=== PATIENT | female | born 1955 | race African-American/Black ===

== ENCOUNTER 2018-04-22 16:22 | Emergency (ER) | payer SELFPAY ==
[~2018-04-22] VITALS: Ht 167.6 cm; Wt 73.0 kg
[2018-04-22] MEDS ORDERED: ONDANSETRON HCL 4MG/2ML INJ IV STA (18:38)
[2018-04-22] MEDS ORDERED: MAGNESIUM/ALUMINUM HYDROXIDE/SIMETHICONE 30ML UDC PO STA (18:38)
[2018-04-22] MEDS ORDERED: SODIUM CHLORIDE 0.9% 1,000 ML IV ONE (18:38)
[2018-04-22] MEDS ORDERED: PANTOPRAZOLE SODIUM 40 MG/VIAL IV STA (18:38)
[2018-04-22 19:14] LABS: BASOPHILS % 0.3 % (0.0-2.0); HEMATOCRIT. 38.5 % (36.0-48.0); HEMOGLOBIN. 12.6 g/dL (12.0-16.0); LYMPHOCYTES % 20.3 % (20.0-50.0); MEAN CORPUSCULAR HEMOGLOBIN 27.7 pg (28.0-32.0); MEAN CORPUSCULAR VOLUME 84.5 fL (81.0-99.0); MEAN PLATELET VOLUME 9.8 fl (7.4-10.4); MONOCYTES % 8.3 % (2.0-8.0); NEUTROPHILS % 71.1 % (40.0-76.0); PLATELET 256 x1000/uL (130-400); RED BLOOD CELL COUNT 4.55 mill/uL (4.2-5.4); RED CELL DISTRIBUTION WIDTH 13.5 % (11.6-14.6)
[2018-04-22 19:23] LABS: CHLORIDE 96 mEq/L (98-107)
[2018-04-22 19:26] LABS: ETHANOL BLOOD < 10 mg/dL
[2018-04-22 22:11] LABS: CLARITY URINE TURBID (CLEAR); COLOR URINE YELLOW (YELLOW); KETONES URINE 3+ (NEGATIVE); LEUKOCYTE ESTERASE URINE NEGATIVE (NEGATIVE); NITRITE URINE NEGATIVE (NEGATIVE); OCCULT BLOOD URINE 2+ (NEGATIVE); PH URINE 5.5 (4.5-8.0); PROTEIN URINE 2+ (NEGATIVE); SPECIFIC GRAVITY URINE 1.039 (1.005-1.030); UROBILINOGEN URINE 0.2 E.U./dL (0.2-1.0)
[2018-04-23 00:12] VITALS: BP 135/82
== END 2018-04-23 00:16 | disposition home or self-care (01) ==
LOC: ER 18:21
DX: R11.10 Vomiting, unspecified (principal); E11.9 Type 2 diabetes mellitus without complications; Z88.6 Allergy status to analgesic agent
CPT/HCPCS: 36415; 80053; 81003; 82962; 83690; 85025; 96374; 96375; 99283; C9113; G0482; J2405; J7030